=== PATIENT | male | born 1940 | race Caucasian/White ===

== ENCOUNTER → 2016-04-16 | Outpatient (CLI) | payer MEDICARE, OTHER ==
[~2016-04-16] MED LIST: IOHEXOL 350 MG/ML 100ML IJ ONE; METF-312 PO; TICA90TA PO
[2016-04-16 09:10] VITALS: BP 174/94
[2016-04-16 09:48] VITALS: BP 172/92
== END | disposition home or self-care (01) ==
LOC: Rad HDHVI 09:00
PROVIDERS: ATTEND Internal Medicine Cardiovascular Disease
DX: I73.89 Other specified peripheral vascular diseases (principal); N40.1 Benign prostatic hyperplasia with lower urinary tract symptoms; K57.90 Diverticulosis of intestine, part unspecified, without perforation or abscess without bleeding; Z98.62 Peripheral vascular angioplasty status; I25.10 Atherosclerotic heart disease of native coronary artery without angina pectoris
CPT/HCPCS: 75635; Q9967; 96374

== ENCOUNTER → 2016-09-11 | Outpatient (CLI) | payer MEDICARE, OTHER ==
[~2016-09-11] VITALS: Ht 177.8 cm; Wt 80.3 kg
[~2016-09-11] MED LIST changes: -IOHEXOL 350 MG/ML 100ML IJ ONE; -METF-312 PO; +METF-370 PO
== END | disposition home or self-care (01) ==
LOC: Rad HDHVI 13:30
PROVIDERS: ATTEND Internal Medicine Cardiovascular Disease
DX: I10 Essential (primary) hypertension (principal); I25.10 Atherosclerotic heart disease of native coronary artery without angina pectoris; R07.89 Other chest pain; Z95.5 Presence of coronary angioplasty implant and graft
CPT/HCPCS: 78452; 93017; 96374; A9500

== ENCOUNTER → 2017-08-27 | Outpatient (CLI) | payer MEDICARE, OTHER | END | disposition home or self-care (01) | LOC: LAB 09:12 | PROVIDERS: ATTEND Internal Medicine Cardiovascular Disease | DX: E11.40 Type 2 diabetes mellitus with diabetic neuropathy, unspecified (principal); I10 Essential (primary) hypertension | CPT/HCPCS: 36415; 83036 ==

== ENCOUNTER → 2017-10-24 | Outpatient (CLI) | payer MEDICARE, OTHER ==
[~2017-10-24] VITALS: Ht 177.8 cm; Wt 73.9 kg
== END | disposition home or self-care (01) ==
LOC: Rad HDHVI 10:10
PROVIDERS: ATTEND Internal Medicine Cardiovascular Disease
DX: E11.9 Type 2 diabetes mellitus without complications (principal); M54.12 Radiculopathy, cervical region; R07.89 Other chest pain
CPT/HCPCS: 78452; 93017; 96374; A9500

== ENCOUNTER → 2018-05-19 | Outpatient (CLI) | payer MEDICARE, OTHER ==
[2018-05-19 12:30] LABS: Basophils # (auto) 0 uL; Basophils % (auto) 0.6 % (0.0-2.0); Eosinophils # (auto) 0.1 uL; Eosinophils % (auto) 3.3 % (0.0-7.0); Hematocrit 40.1 % (41.0-53.0); Hemoglobin 13.1 g/dL (13.5-17.5); Lymphocytes # (auto) 1.2 uL; Lymphocytes % (auto) 36.3 % (10.0-50.0); Mean Corpuscular Hemoglobin 31.2 pg (28.0-32.0); Mean Corpuscular Hgb Conc. 32.6 g/dL (32.0-36.0); Mean Corpuscular Volume 95.6 fL (80.0-100.0); Monocytes # (auto) 0.5 uL; Monocytes % (auto) 13.8 % (0.0-12.0); Neutrophils # (auto) 1.5 uL; Nucleated Red Blood Cells % 0.3 %; Platelet Count (auto) 170 10^3/uL (140-450); Red Blood Cells 4.19 10^6/uL (4.5-5.90); Red Cell Distribution Width 14.6 % (11.8-14.3); White Blood Cell 3.3 10^3/uL (4.4-10.8)
[2018-05-19 12:31] LABS: Urine Blood Negative /uL (Negative); Urine Specific Gravity 1.024 (1.001-1.035)
[2018-05-19 12:32] LABS: Albumin 3.6 g/dL (3.4-5.0); Calcium 9.4 mg/dL (8.5-10.1); Potassium 3.8 mmol/L (3.5-5.1)
[2018-05-19 12:38] LABS: BUN/Creatinine Ratio 18.9; Bilirubin, Total 0.5 mg/dL (0.2-1.0); Total Protein 7.4 g/dL (6.4-8.2)
[2018-05-19 14:12] LABS: Free T4 (Free Thyroxine) 1.33 ng/dL (0.89-1.76)
[2018-05-19 14:13] LABS: Prostate Specific Antigen 1.05 ng/mL (0.0-4.0)
== END | disposition home or self-care (01) ==
LOC: LAB 09:13
PROVIDERS: ATTEND Internal Medicine Cardiovascular Disease
DX: C61 Malignant neoplasm of prostate (principal); E03.9 Hypothyroidism, unspecified; E11.9 Type 2 diabetes mellitus without complications; E55.9 Vitamin D deficiency, unspecified; E29.1 Testicular hypofunction; D51.9 Vitamin B12 deficiency anemia, unspecified; N39.0 Urinary tract infection, site not specified
CPT/HCPCS: 36415; 80053; 80061; 81003; 82306; 82607; 83036; 84153; 84403; 84439; 84443; 85025

== ENCOUNTER → 2018-11-18 | Outpatient (CLI) | payer MEDICARE, OTHER | END | disposition home or self-care (01) | LOC: Rad HDHVI 12:54 | PROVIDERS: ATTEND Internal Medicine Cardiovascular Disease | DX: I25.118 Atherosclerotic heart disease of native coronary artery with other forms of angina pectoris (principal); E11.9 Type 2 diabetes mellitus without complications; E03.9 Hypothyroidism, unspecified | CPT/HCPCS: 93306 ==

== ENCOUNTER → 2018-12-03 | Outpatient (CLI) | payer MEDICARE, OTHER ==
[~2018-12-03] VITALS: Ht 177.8 cm; Wt 71.2 kg
[2018-12-03 12:07] LABS: Basophils # (auto) 0 uL; Basophils % (auto) 0.5 % (0.0-2.0); Eosinophils # (auto) 0.1 uL; Eosinophils % (auto) 4.2 % (0.0-7.0); Hematocrit 40.3 % (41.0-53.0); Hemoglobin 13.5 g/dL (13.5-17.5); Lymphocytes # (auto) 1.2 uL; Mean Corpuscular Hemoglobin 31.8 pg (28.0-32.0); Mean Corpuscular Hgb Conc. 33.6 g/dL (32.0-36.0); Mean Corpuscular Volume 94.8 fL (80.0-100.0); Monocytes # (auto) 0.5 uL; Monocytes % (auto) 16.1 % (0.0-12.0); Neutrophils # (auto) 1.4 uL; Neutrophils % (auto) 42.2 % (37.0-80.0); Nucleated Red Blood Cells % 0.1 %; Platelet Count (auto) 156 10^3/uL (140-450); Red Blood Cells 4.25 10^6/uL (4.5-5.90); Red Cell Distribution Width 14.3 % (11.8-14.3); White Blood Cell 3.4 10^3/uL (4.4-10.8)
[2018-12-03 12:52] LABS: Albumin 3.8 g/dL (3.4-5.0); Calcium 10.1 mg/dL (8.5-10.1); Potassium 3.6 mmol/L (3.5-5.1)
[2018-12-03 12:57] LABS: BUN/Creatinine Ratio 20.8; Bilirubin, Total 1.1 mg/dL (0.2-1.0); Total Protein 7.7 g/dL (6.4-8.2)
[2018-12-03 13:06] LABS: Free T4 (Free Thyroxine) 1.32 ng/dL (0.89-1.76); Prostate Specific Antigen 1.81 ng/mL (0.0-4.0)
== END | disposition home or self-care (01) ==
LOC: Rad HDHVI 09:04
PROVIDERS: ATTEND Internal Medicine Cardiovascular Disease
DX: E03.9 Hypothyroidism, unspecified (principal); K90.9 Intestinal malabsorption, unspecified; C61 Malignant neoplasm of prostate; E29.1 Testicular hypofunction; N39.0 Urinary tract infection, site not specified; D51.9 Vitamin B12 deficiency anemia, unspecified; E11.59 Type 2 diabetes mellitus with other circulatory complications; Z79.899 Other long term (current) drug therapy
CPT/HCPCS: 36415; 80053; 80061; 82306; 82607; 83036; 84153; 84403; 84439; 84443; 85025

== ENCOUNTER → 2018-12-17 | Outpatient (CLI) | payer MEDICARE, OTHER ==
[~2018-12-17] VITALS: Ht 177.8 cm; Wt 71.2 kg
== END | disposition home or self-care (01) ==
LOC: Rad HDHVI 13:04
PROVIDERS: ATTEND Internal Medicine Cardiovascular Disease
DX: I25.10 Atherosclerotic heart disease of native coronary artery without angina pectoris (principal); E11.9 Type 2 diabetes mellitus without complications; I10 Essential (primary) hypertension
CPT/HCPCS: 78452; 93017; 96374; A9500

== ENCOUNTER → 2019-04-10 | Outpatient (CLI) | payer MEDICARE, OTHER | END | disposition home or self-care (01) | LOC: Rad HDHVI 10:06 | PROVIDERS: ATTEND Internal Medicine Cardiovascular Disease | DX: M16.0 Bilateral primary osteoarthritis of hip (principal); M47.817 Spondylosis without myelopathy or radiculopathy, lumbosacral region; M48.07 Spinal stenosis, lumbosacral region | CPT/HCPCS: 72192 ==

== ENCOUNTER → 2019-12-14 | Outpatient (CLI) | payer MEDICARE, OTHER ==
[2019-12-14 11:55] LABS: Basophils # (auto) 0 10 ^3/uL (0-0.2); Basophils % (auto) 0.7 % (0.0-2.0); Eosinophils # (auto) 0.1 10 ^3/uL (0-0.8); Eosinophils % (auto) 3.6 % (0.0-7.0); Hematocrit 39.6 % (41.0-53.0); Hemoglobin 13.5 g/dL (13.5-17.5); Lymphocytes # (auto) 1.4 10 ^3/uL (0.4-5.4); Lymphocytes % (auto) 43.3 % (10.0-50.0); Mean Corpuscular Hemoglobin 32.1 pg (28.0-32.0); Mean Corpuscular Hgb Conc. 34.1 g/dL (32.0-36.0); Mean Corpuscular Volume 94.1 fL (80.0-100.0); Monocytes # (auto) 0.4 10 ^3/uL (0-1.3); Monocytes % (auto) 14.1 % (0.0-12.0); Neutrophils # (auto) 1.2 10 ^3/uL (1.6-8.6); Neutrophils % (auto) 38.3 % (37.0-80.0); Nucleated Red Blood Cells % 0.1 %; Platelet Count (auto) 185 10^3/uL (140-450); Red Cell Distribution Width 13.9 % (11.8-14.3); White Blood Cell 3.2 10^3/uL (4.4-10.8)
[2019-12-14 12:00] LABS: Urine Blood Negative /uL (Negative); Urine Specific Gravity 1.014 (1.001-1.035)
[2019-12-14 12:10] LABS: Potassium 3.8 mmol/L (3.5-5.1)
[2019-12-14 12:15] LABS: Free T4 (Free Thyroxine) 1.24 ng/dL (0.89-1.76); Prostate Specific Antigen 0.83 ng/mL (0.0-4.0)
[2019-12-14 12:37] LABS: Albumin 3.5 g/dL (3.4-5.0); Bilirubin, Total 0.6 mg/dL (0.2-1.0); Calcium 9.2 mg/dL (8.5-10.1)
== END | disposition home or self-care (01) ==
LOC: LAB 09:18
PROVIDERS: ATTEND Internal Medicine Cardiovascular Disease
DX: C61 Malignant neoplasm of prostate (principal); D51.3 Other dietary vitamin B12 deficiency anemia; D64.9 Anemia, unspecified; I10 Essential (primary) hypertension; E11.9 Type 2 diabetes mellitus without complications; E55.9 Vitamin D deficiency, unspecified; R00.2 Palpitations; R53.1 Weakness; R30.0 Dysuria
CPT/HCPCS: 36415; 80053; 80061; 81003; 82306; 82607; 83036; 84153; 84403; 84439; 84443; 85025

== ENCOUNTER → 2019-12-23 | Outpatient (CLI) | payer MEDICARE, OTHER ==
[~2019-12-23] VITALS: Ht 177.8 cm; Wt 71.7 kg
== END | disposition home or self-care (01) ==
LOC: Rad HDHVI 13:15
PROVIDERS: ATTEND Internal Medicine Cardiovascular Disease
DX: I25.10 Atherosclerotic heart disease of native coronary artery without angina pectoris (principal); E11.9 Type 2 diabetes mellitus without complications; R06.02 Shortness of breath
CPT/HCPCS: 78452; 93017; 96374; A9500

== ENCOUNTER → 2020-03-22 | Outpatient (CLI) | payer MEDICARE, OTHER | END | disposition home or self-care (01) | LOC: Rad HDHVI 11:22 | PROVIDERS: ATTEND Internal Medicine Cardiovascular Disease | DX: M48.02 Spinal stenosis, cervical region (principal); M50.31 Other cervical disc degeneration, high cervical region; M50.23 Other cervical disc displacement, cervicothoracic region; M47.813 Spondylosis without myelopathy or radiculopathy, cervicothoracic region; M25.78 Osteophyte, vertebrae | CPT/HCPCS: 72125 ==

== ENCOUNTER → 2020-05-12 | Outpatient (CLI) | payer MEDICARE, OTHER | END | disposition home or self-care (01) | LOC: Rad HDHVI 11:18 | PROVIDERS: ATTEND Internal Medicine Cardiovascular Disease | DX: E11.42 Type 2 diabetes mellitus with diabetic polyneuropathy (principal); E78.5 Hyperlipidemia, unspecified | CPT/HCPCS: 93925 ==

== ENCOUNTER → 2020-05-18 | Outpatient (CLI) | payer MEDICARE, OTHER | END | disposition home or self-care (01) | LOC: Rad HDHVI 13:16 | PROVIDERS: ATTEND Internal Medicine Cardiovascular Disease | DX: I08.0 Rheumatic disorders of both mitral and aortic valves (principal); R07.89 Other chest pain; J44.9 Chronic obstructive pulmonary disease, unspecified | CPT/HCPCS: 93306 ==

== ENCOUNTER → 2020-07-01 | Outpatient (CLI) | payer MEDICARE, OTHER ==
[~2020-07-01] MED LIST changes: +FUROSEMIDE 100 MG/10ML VIAL IV ONE; +FUROSEMIDE 40 MG/4 ML VIAL ONE; +POTASSIUM CHL 10 Meq TABLET PO ONE; +POTASSIUM CHL 20 Meq TABLET PO ONE
[2020-07-01 12:05] VITALS: BP 128/74
[2020-07-01 12:46] VITALS: BP 155/86
== END | disposition home or self-care (01) ==
LOC: CHF HDHVI 12:10
PROVIDERS: ATTEND Internal Medicine Cardiovascular Disease
DX: R60.9 Edema, unspecified (principal); E87.6 Hypokalemia; E78.5 Hyperlipidemia, unspecified; E11.42 Type 2 diabetes mellitus with diabetic polyneuropathy
CPT/HCPCS: 96374; G0463; J1940

== ENCOUNTER → 2020-07-08 | Outpatient (CLI) | payer MEDICARE, OTHER ==
[~2020-07-08] MED LIST changes: -FUROSEMIDE 100 MG/10ML VIAL IV ONE; -FUROSEMIDE 40 MG/4 ML VIAL ONE; -POTASSIUM CHL 10 Meq TABLET PO ONE; -POTASSIUM CHL 20 Meq TABLET PO ONE
[2020-07-08 15:41] LABS: Calcium 9.4 mg/dL (8.5-10.1); Potassium 3.6 mmol/L (3.5-5.1)
[2020-07-08 15:49] LABS: BUN/Creatinine Ratio 27.5
== END | disposition home or self-care (01) ==
LOC: LAB 12:25
PROVIDERS: ATTEND Internal Medicine Cardiovascular Disease
DX: I50.23 Acute on chronic systolic (congestive) heart failure (principal)
CPT/HCPCS: 36415; 80048; 83880

== ENCOUNTER → 2020-09-20 | Outpatient (CLI) | payer MEDICARE, OTHER ==
[2020-09-20 12:14] LABS: Urine Blood Negative /uL (Negative); Urine Specific Gravity 1.015 (1.001-1.035)
[2020-09-20 12:27] LABS: Basophils # (auto) 0 10 ^3/uL (0-0.2); Basophils % (auto) 0.7 % (0.0-2.0); Eosinophils # (auto) 0.1 10 ^3/uL (0-0.8); Eosinophils % (auto) 2.6 % (0.0-7.0); Hematocrit 39.1 % (41.0-53.0); Hemoglobin 13.4 g/dL (13.5-17.5); Lymphocytes # (auto) 1.5 10 ^3/uL (0.4-5.4); Lymphocytes % (auto) 42.1 % (10.0-50.0); Mean Corpuscular Hemoglobin 31.8 pg (28.0-32.0); Mean Corpuscular Hgb Conc. 34.2 g/dL (32.0-36.0); Monocytes # (auto) 0.6 10 ^3/uL (0-1.3); Monocytes % (auto) 16.5 % (0.0-12.0); Neutrophils # (auto) 1.3 10 ^3/uL (1.6-8.6); Neutrophils % (auto) 38.1 % (37.0-80.0); Nucleated Red Blood Cells % 0.1 %; Platelet Count (auto) 173 10^3/uL (140-450); Red Blood Cells 4.21 10^6/uL (4.5-5.90); White Blood Cell 3.5 10^3/uL (4.4-10.8)
[2020-09-20 12:38] LABS: Free T4 (Free Thyroxine) 1.49 ng/dL (0.89-1.76); Prostate Specific Antigen 1.59 ng/mL (0.0-4.0)
[2020-09-20 12:57] LABS: Albumin 3.5 g/dL (3.4-5.0); Calcium 9.3 mg/dL (8.5-10.1); Potassium 3.6 mmol/L (3.5-5.1)
[2020-09-20 13:02] LABS: BUN/Creatinine Ratio 20.5; Total Protein 6.9 g/dL (6.4-8.2)
== END | disposition home or self-care (01) ==
LOC: CHF HDHVI 09:27
PROVIDERS: ATTEND Internal Medicine Cardiovascular Disease
DX: C61 Malignant neoplasm of prostate (principal); D51.3 Other dietary vitamin B12 deficiency anemia; I10 Essential (primary) hypertension; E11.9 Type 2 diabetes mellitus without complications; E55.9 Vitamin D deficiency, unspecified; D64.9 Anemia, unspecified; R00.2 Palpitations; R53.1 Weakness; R30.0 Dysuria
CPT/HCPCS: 36415; 80053; 80061; 81003; 82306; 82607; 83036; 84153; 84403; 84439; 84443; 85025; 85049

== ENCOUNTER → 2020-12-19 | Outpatient (CLI) | payer MEDICARE, OTHER | END | disposition home or self-care (01) | LOC: LAB 10:06 | PROVIDERS: ATTEND Internal Medicine Cardiovascular Disease | DX: E11.9 Type 2 diabetes mellitus without complications (principal) | CPT/HCPCS: 36415; 83036 ==

== ENCOUNTER → 2021-01-30 | Outpatient (CLI) | payer MEDICARE, OTHER ==
[2021-01-30 12:02] LABS: Calcium 9.4 mg/dL (8.5-10.1); Potassium 4.1 mmol/L (3.5-5.1)
[2021-01-30 12:03] LABS: BUN/Creatinine Ratio 15.5
== END | disposition home or self-care (01) ==
LOC: LAB 10:45
PROVIDERS: ATTEND Internal Medicine Cardiovascular Disease
DX: I10 Essential (primary) hypertension (principal)
CPT/HCPCS: 36415; 80048

== ENCOUNTER 2021-04-01 17:45 | Inpatient (IN) | payer MEDICARE, OTHER ==
[~2021-04-01] VITALS: Ht 180.3 cm; Wt 87.2 kg
[2021-04-01 19:30] LABS: Basophils # (auto) 0.1 10 ^3/uL (0-0.2); Basophils % (auto) 4.3 % (0.0-2.0); Eosinophils # (auto) 0.2 10 ^3/uL (0-0.8); Eosinophils % (auto) 4.8 % (0.0-7.0); Hematocrit 36.8 % (41.0-53.0); Hemoglobin 12.3 g/dL (13.5-17.5); Lymphocytes # (auto) 0.9 10 ^3/uL (0.4-5.4); Lymphocytes % (auto) 26.9 % (10.0-50.0); Mean Corpuscular Hemoglobin 30.9 pg (28.0-32.0); Mean Corpuscular Hgb Conc. 33.3 g/dL (32.0-36.0); Mean Corpuscular Volume 92.6 fL (80.0-100.0); Monocytes # (auto) 0.4 10 ^3/uL (0-1.3); Monocytes % (auto) 12.3 % (0.0-12.0); Neutrophils # (auto) 1.7 10 ^3/uL (1.6-8.6); Neutrophils % (auto) 51.7 % (37.0-80.0); Nucleated Red Blood Cells % 0.1 %; Red Blood Cells 3.97 10^6/uL (4.5-5.90); Red Cell Distribution Width 14.3 % (11.8-14.3); White Blood Cell 3.3 10^3/uL (4.4-10.8)
[2021-04-01 20:09] LABS: Albumin 3.2 g/dL (3.4-5.0); Calcium 8.8 mg/dL (8.5-10.1); Potassium 3.7 mmol/L (3.5-5.1)
[2021-04-01 20:12] LABS: BUN/Creatinine Ratio 22.3; Bilirubin, Total 0.7 mg/dL (0.2-1.0); Total Protein 7.2 g/dL (6.4-8.2)
[2021-04-01] MEDS ORDERED: PIPERACILLIN-TAZO 4.5GM 100 ML IV ONE (22:15)
[2021-04-01] MEDS ORDERED: VANCOMYCIN 1,500 MG in D5W 5% 250 ML IV STA (22:15)
[2021-04-01] MEDS ORDERED: CLINDAMYCIN 600MG IV 50 ML IV ONE (22:15)
[2021-04-02 00:55] LABS: Urine Bacteria NONE SEEN /hpf (None Seen); Urine Blood Negative /uL (Negative); Urine Hyaline Cast FEW /lpf (0 - 2); Urine Mucus FEW (None Seen); Urine Specific Gravity 1.021 (1.001-1.035); Urine WBC 1 /hpf (0 - 3)
[2021-04-02] MEDS ORDERED: VANCOMYCIN PER PHARMACY 0 MG IV SCH (04:45)
[2021-04-02] MEDS ORDERED: DEXTROSE (50%) 50ML SYRG IV PRN (04:45)
[2021-04-02] MEDS ORDERED: ACETAMINOPHEN 325 MG TAB PO PRN (04:45)
[2021-04-02] MEDS ORDERED: DOCUSATE SOD 100 MG CAP PO PRN (04:45)
[2021-04-02] MEDS ORDERED: ONDANSETRON HCL 4 MG/2 ML VIAL IV PRN (04:45)
[2021-04-02] MEDS ORDERED: HYDROcodone-ACET 5/325MG TAB PO PRN (04:45)
[2021-04-02] MEDS ORDERED: MORPHINE SULFATE INJECTION 2 MG/ML SYRG IV PRN (06:15)
[2021-04-02] MEDS ORDERED: NITROGLYCERIN 0.4 MG SL TAB SL PRN (06:15)
[2021-04-02] MEDS: InsuLIN REG 1unit/0.01ml Soln (100units/ml) SC SCH ×3 (07:00→17:00)
[2021-04-02 07:35] LABS: Basophils # (auto) 0 10 ^3/uL (0-0.2); Basophils % (auto) 0.7 % (0.0-2.0); Eosinophils # (auto) 0.1 10 ^3/uL (0-0.8); Eosinophils % (auto) 2.3 % (0.0-7.0); Hemoglobin 12.4 g/dL (13.5-17.5); Lymphocytes # (auto) 0.9 10 ^3/uL (0.4-5.4); Lymphocytes % (auto) 26.2 % (10.0-50.0); Mean Corpuscular Hemoglobin 31.1 pg (28.0-32.0); Mean Corpuscular Hgb Conc. 33.5 g/dL (32.0-36.0); Mean Corpuscular Volume 92.9 fL (80.0-100.0); Monocytes # (auto) 0.5 10 ^3/uL (0-1.3); Monocytes % (auto) 14.2 % (0.0-12.0); Neutrophils % (auto) 56.6 % (37.0-80.0); Red Blood Cells 3.99 10^6/uL (4.5-5.90); Red Cell Distribution Width 14.1 % (11.8-14.3); White Blood Cell 3.5 10^3/uL (4.4-10.8)
[2021-04-02 07:46] LABS: Potassium 3.6 mmol/L (3.5-5.1)
[2021-04-02 07:54] LABS: Albumin 3.3 g/dL (3.4-5.0); BUN/Creatinine Ratio 19.6; Bilirubin, Total 1.2 mg/dL (0.2-1.0); Total Protein 7.5 g/dL (6.4-8.2)
[2021-04-02] MEDS: PIPERACILLIN-TAZOB 3.375GM 100 ML IV SCH ×3 (08:00→22:41)
[2021-04-02] MEDS: SODIUM CHLOR 0.9% PF (SALINE LOCK) 10ML VIAL/SYR IV SCH ×3 (08:00→22:41)
[2021-04-02] MEDS: ACCU-CHEK COMFORT CURVE STRIP VI SCH ×4 (08:01→22:41)
[2021-04-02] MEDS: ASCORBIC ACID 500 MG TAB PO SCH ×2 (09:29→22:41)
[2021-04-02] MEDS ORDERED: MULTIPLE VITAMIN TAB PO SCH (10:00)
[2021-04-02] MEDS ORDERED: ENOXAPARIN SOD 40 MG/0.4 ML SYRINGE SC SCH (10:00)
[2021-04-02] MEDS ORDERED: ZINC SULFATE 220mg CAP or TAB PO SCH (10:00)
[2021-04-02] MEDS ORDERED: FAMOTIDINE (10MG/ML) 2ML VL IV SCH (10:00)
[2021-04-02] MEDS ORDERED: VANCOMYCIN 1GM/250ML 250 ML IV SCH (13:00)
[2021-04-02 14:00] VITALS: BP 152/83
[2021-04-02 16:08] LABS: INR 1.21 (0.9-1.15); Partial Thromboplastin Time 30.8 sec (23.6-33.0)
[2021-04-02] MEDS ORDERED: LATA0.0019 EACHEYE (17:27)
[2021-04-02 18:00] VITALS: BP 147/87
[2021-04-02 22:00] VITALS: BP 129/58
[2021-04-02] MEDS ORDERED: InsuLIN REG 1unit/0.01ml Soln (100units/ml) SC SCH (22:00)
[2021-04-02] MEDS ORDERED: ATORVASTATIN 20 MG TAB PO SCH (22:00)
[2021-04-03 05:00] VITALS: BP 132/66
[2021-04-03] MEDS: PIPERACILLIN-TAZOB 3.375GM 100 ML IV SCH (06:00)
[2021-04-03] MEDS: SODIUM CHLOR 0.9% PF (SALINE LOCK) 10ML VIAL/SYR IV SCH (06:00)
[2021-04-03] MEDS: ACCU-CHEK COMFORT CURVE STRIP VI SCH (07:00)
[2021-04-03] MEDS: InsuLIN REG 1unit/0.01ml Soln (100units/ml) SC SCH (07:00)
[2021-04-05] MEDS ORDERED: POTA10TA51 PO (12:32)
[2021-04-05] MEDS ORDERED: ASPI81CH74 PO (12:32)
[2021-04-05] MEDS ORDERED: GABA300C11 GT (14:27)
== END 2021-04-03 09:36 | disposition left against medical advice (07) | DRG 639 ==
LOC: ER 17:45 → OVERFLOW 04-02 06:11 → WEST WING 04-02 12:33
PROVIDERS: ADMIT Nurse Practitioner Family; ATTEND Internal Medicine Cardiovascular Disease
DX: E11.621 Type 2 diabetes mellitus with foot ulcer (principal); L97.509 Non-pressure chronic ulcer of other part of unspecified foot with unspecified severity; R60.0 Localized edema; Z20.822 Contact with and (suspected) exposure to COVID-19
CPT/HCPCS: 36415; 73630; 80053; 81001; 82962; 83036; 83605; 85025; 85610; 85652; 85730; 86141; 87040; 87426; 93925; 96365; 96368; 96375; G0378; J1815; J2543; J3490; J7060

== ENCOUNTER → 2021-04-03 | Outpatient (CLI) | payer MEDICARE, OTHER ==
[~2021-04-03] MED LIST changes: +ASPI81CH74 PO; +BUMETANIDE 2.5mg/10ml (0.25 mg/ml) INJ IV ONE; +BUMETANIDE INJECTION 20 ML ONE; +EMPA1TAB3 PO; +GABA300C11 GT; +LATA0.0019 EACHEYE; +MULTTAB99 GT; +POTA-220 PO; +POTA10TA51 PO; +POTASSIUM CHL 10 Meq TABLET PO ONE; +POTASSIUM CHL 20 Meq TABLET PO ONE; +TADA5TAB11 PO; +TORS20TA20 PO; +ceFAZolin 1GM/50ML 100 ML IV ONE; +ceFAZolin 2 GM in D5W 5% 100 ML IV ONE
[2021-04-03 13:15] VITALS: BP 147/72
[2021-04-03 14:45] VITALS: BP 114/66
== END | disposition home or self-care (01) ==
LOC: CHF HDHVI 13:16
PROVIDERS: ATTEND Internal Medicine Cardiovascular Disease
DX: L03.115 Cellulitis of right lower limb (principal); R60.0 Localized edema; E11.621 Type 2 diabetes mellitus with foot ulcer; L97.519 Non-pressure chronic ulcer of other part of right foot with unspecified severity
CPT/HCPCS: 96365; 96375; G0463; J0690; J7060

== ENCOUNTER → 2021-04-05 | Outpatient (CLI) | payer MEDICARE, OTHER ==
[~2021-04-05] VITALS: Ht 180.3 cm; Wt 76.7 kg
[~2021-04-05] MED LIST changes: -BUMETANIDE 2.5mg/10ml (0.25 mg/ml) INJ IV ONE; -BUMETANIDE INJECTION 20 ML ONE; -POTASSIUM CHL 10 Meq TABLET PO ONE; -POTASSIUM CHL 20 Meq TABLET PO ONE; -ceFAZolin 1GM/50ML 100 ML IV ONE; -ceFAZolin 2 GM in D5W 5% 100 ML IV ONE
[2021-04-05 11:15] VITALS: BP 114/67
[2021-04-05 11:30] VITALS: BP 119/67
[2021-04-05 15:16] LABS: Basophils # (auto) 0 10 ^3/uL (0-0.2); Basophils % (auto) 0.8 % (0.0-2.0); Eosinophils # (auto) 0.1 10 ^3/uL (0-0.8); Eosinophils % (auto) 1.5 % (0.0-7.0); Hematocrit 38.7 % (41.0-53.0); Hemoglobin 12.8 g/dL (13.5-17.5); Lymphocytes # (auto) 1.2 10 ^3/uL (0.4-5.4); Lymphocytes % (auto) 30.2 % (10.0-50.0); Mean Corpuscular Hemoglobin 31.1 pg (28.0-32.0); Mean Corpuscular Hgb Conc. 33.2 g/dL (32.0-36.0); Mean Corpuscular Volume 93.6 fL (80.0-100.0); Monocytes # (auto) 0.5 10 ^3/uL (0-1.3); Monocytes % (auto) 11.8 % (0.0-12.0); Neutrophils # (auto) 2.2 10 ^3/uL (1.6-8.6); Neutrophils % (auto) 55.7 % (37.0-80.0); Nucleated Red Blood Cells % 0.1 %; Red Blood Cells 4.13 10^6/uL (4.5-5.90); Red Cell Distribution Width 14.3 % (11.8-14.3); White Blood Cell 3.9 10^3/uL (4.4-10.8)
[2021-04-05 15:24] LABS: Calcium 9.6 mg/dL (8.5-10.1)
[2021-04-05 15:30] LABS: INR 1.16 (0.9-1.15)
== END | disposition home or self-care (01) ==
LOC: Rad HDHVI 11:05
PROVIDERS: ATTEND Internal Medicine Cardiovascular Disease
DX: Z01.812 Encounter for preprocedural laboratory examination (principal); I70.0 Atherosclerosis of aorta; L93.0 Discoid lupus erythematosus; R60.0 Localized edema; I73.9 Peripheral vascular disease, unspecified; I50.23 Acute on chronic systolic (congestive) heart failure; Z20.822 Contact with and (suspected) exposure to COVID-19
CPT/HCPCS: 36415; 71046; 80048; 85025; 85610; 85730; 93005; C9803; G0463; U0003

== ENCOUNTER 2021-04-06 07:32 | Day surgery (SDC) | payer MEDICARE, OTHER ==
[~2021-04-06 07:32] MED LIST changes: -EMPA1TAB3 PO; -MULTTAB99 GT; -POTA-220 PO; -TADA5TAB11 PO; -TICA90TA PO; -TORS20TA20 PO
[2021-04-06] MEDS ORDERED: LIDOCAINE 2%HCL (LOCAL ANESTH.) INJ 20ML MDV ONE (09:55)
[2021-04-06] MEDS ORDERED: HEPARIN IN NS 1000Units/500mL 1,500 ML ONE (09:56)
[2021-04-06] MEDS ORDERED: IOHEXOL 350 MG/ML 100ML IJ ONE ×2 (09:56→12:48)
[2021-04-06] MEDS ORDERED: POTA-220 PO (11:30)
[2021-04-06] MEDS ORDERED: TADA5TAB11 PO ×2 (11:30→11:31)
[2021-04-06] MEDS ORDERED: EMPA1TAB3 PO (11:30)
[2021-04-06] MEDS ORDERED: TORS20TA20 PO (11:30)
[2021-04-06] MEDS ORDERED: MULTTAB99 GT (11:34)
[2021-04-06] MEDS ORDERED: MIDAZOLAM HCL 2MG/2ML 2ml VIAL (1mg/ml) ONE (11:41)
[2021-04-06] MEDS ORDERED: fentaNYL CITRATE 100 MCG/2 ML VL ONE (11:41)
[2021-04-06] MEDS ORDERED: SODIUM CHL 0.9% 50 ML ONE (11:41)
[2021-04-06] MEDS ORDERED: ANGIOMAX 250 MG VIAL IV ONE (11:41)
[2021-04-06] MEDS ORDERED: CLOPIDOGREL 300 MG TAB ONE (13:37)
== END 2021-04-06 15:30 | disposition home or self-care (01) ==
LOC: CATH 07:32
PROVIDERS: ATTEND Internal Medicine Cardiovascular Disease
DX: E11.51 Type 2 diabetes mellitus with diabetic peripheral angiopathy without gangrene (principal); I20.9 Angina pectoris, unspecified; Z79.02 Long term (current) use of antithrombotics/antiplatelets; Z95.5 Presence of coronary angioplasty implant and graft; Z79.84 Long term (current) use of oral hypoglycemic drugs; Z79.82 Long term (current) use of aspirin
CPT/HCPCS: 37231; C1725; C1760; C1769; C1887; C1894; J0583; J1644; J2250; J3010; J7030; Q9967; 37229; 99152; 99153

== ENCOUNTER 2022-08-26 17:40 | Emergency (ER) | payer MEDICARE, OTHER ==
[~2022-08-26] VITALS: Ht 177.8 cm; Wt 74.0 kg
[~2022-08-26 17:40] MED LIST changes: +EMPA1TAB3 PO; +GABA-1254 GT; -GABA300C11 GT; -LATA0.0019 EACHEYE; +LATA0.008 EACHEYE; -METF-370 PO; +MULTTAB99 GT; +POTA-220 PO; -POTA10TA51 PO; +TADA5TAB11 PO; +TORS20TA20 PO
[2022-08-26 19:24] LABS: Basophils # (auto) 0 10 ^3/uL (0-0.2); Basophils % (auto) 0.6 % (0.0-2.0); Eosinophils # (auto) 0.1 10 ^3/uL (0-0.8); Eosinophils % (auto) 3.1 % (0.0-7.0); Hematocrit 41.7 % (41.0-53.0); Hemoglobin 13.9 g/dL (13.5-17.5); Lymphocytes # (auto) 0.9 10 ^3/uL (0.4-5.4); Lymphocytes % (auto) 24.5 % (10.0-50.0); Mean Corpuscular Hgb Conc. 33.3 g/dL (32.0-36.0); Mean Corpuscular Volume 96.2 fL (80.0-100.0); Monocytes # (auto) 0.5 10 ^3/uL (0-1.3); Monocytes % (auto) 12.1 % (0.0-12.0); Neutrophils # (auto) 2.3 10 ^3/uL (1.6-8.6); Neutrophils % (auto) 59.7 % (37.0-80.0); Nucleated Red Blood Cells % 0.1 %; Red Blood Cells 4.34 10^6/uL (4.5-5.90); Red Cell Distribution Width 13.9 % (11.8-14.3); White Blood Cell 3.8 10^3/uL (4.4-10.8)
[2022-08-26 19:26] LABS: Urine Bacteria FEW /hpf (None Seen); Urine Blood Negative /uL (Negative); Urine Mucus FEW (None Seen); Urine Specific Gravity 1.014 (1.001-1.035); Urine WBC 479 /hpf (0 - 3); Urine WBC Clumps PRESENT /hpf (None Seen)
[2022-08-26 19:32] LABS: Albumin 3.4 g/dL (3.4-5.0); Calcium 9.1 mg/dL (8.5-10.1); Potassium 4.4 mmol/L (3.5-5.1)
[2022-08-26 19:34] LABS: BUN/Creatinine Ratio 24.4 (10.0-20.0)
[2022-08-26 19:37] LABS: Bilirubin, Total 0.5 mg/dL (0.2-1.0); Total Protein 6.8 g/dL (6.4-8.2)
[2022-08-26] MEDS ORDERED: cefTRIAXone SOD 1,000 MG VL IM ONE (19:45)
[2022-08-26] MEDS ORDERED: BACDST PO (19:55)
[2022-08-26 22:47] VITALS: BP 115/74
== END 2022-08-26 22:48 | disposition home or self-care (01) ==
LOC: ER 17:40
DX: N39.0 Urinary tract infection, site not specified (principal); R31.9 Hematuria, unspecified; E11.9 Type 2 diabetes mellitus without complications; Z79.899 Other long term (current) drug therapy; Z88.8 Allergy status to other drugs, medicaments and biological substances; Z79.82 Long term (current) use of aspirin
CPT/HCPCS: 36415; 80053; 81001; 85025; 96372; 99283; J0696